=== PATIENT | male | born 1970 | race Caucasian/White ===

== ENCOUNTER 2017-03-22 07:51 | Emergency (ER) | payer OTHER ==
[~2017-03-22] VITALS: Ht 182.9 cm; Wt 107.4 kg
[2017-03-22] MEDS ORDERED: LISI-170 PO (08:14)
[2017-03-22] MEDS ORDERED: ASPIRIN 81 MG TABLET CHEW PO ONE (08:30)
[2017-03-22] MEDS ORDERED: NITROGLYCERIN SINGLE TAB 0.4 MG SL PRN (08:30)
[2017-03-22 09:02] LABS: BLOOD UREA NITROGEN 22 mg/dL (7-18)
[2017-03-22 09:06] LABS: IS PT STATUS REG ER OR PRE ER? YES
[2017-03-22] MEDS ORDERED: ASPIRIN 81 MG TABLET CHEW ONE (09:07)
[2017-03-22] MEDS ORDERED: NITROGLYCERIN SINGLE TAB 0.4 MG SL ONE (09:07)
[2017-03-22 11:49] VITALS: BP 120/68
== END 2017-03-22 12:19 | disposition home or self-care (01) ==
LOC: ED 08:50
DX: R07.89 Other chest pain (principal); I10 Essential (primary) hypertension
CPT/HCPCS: 36415; 71010; 80048; 82040; 84484; 85025; 93005; 99285

== ENCOUNTER → 2017-05-06 | Outpatient (CLI) | payer OTHER ==
[~2017-05-06] MED LIST: LISI-170 PO
== END | disposition home or self-care (01) ==
LOC: CVU 12:30
PROVIDERS: ATTEND Internal Medicine Cardiovascular Disease
DX: I77.819 Aortic ectasia, unspecified site (principal); I51.7 Cardiomegaly; I10 Essential (primary) hypertension; E78.5 Hyperlipidemia, unspecified
CPT/HCPCS: 93306

== ENCOUNTER 2017-06-10 09:51 | Day surgery (SDC) | payer OTHER ==
[~2017-06-10] VITALS: Ht 182.9 cm; Wt 95.5 kg
[2017-06-10] MEDS ORDERED: SODIUM CHLORIDE 0.9% 1,000 ML IV SCH (09:58)
[2017-06-10] MEDS ORDERED: BISACODYL 5 MG EC TABLET PO PRN (10:00)
[2017-06-10] MEDS ORDERED: ONDANSETRON 2MG/ML, 2ML IVPush PRN (10:00)
[2017-06-10] MEDS ORDERED: ACETAMINOPHEN 325 MG TABLET PO PRN (10:00)
[2017-06-10] MEDS ORDERED: BISACODYL 10 MG SUPP PR PRN (10:00)
[2017-06-10] MEDS ORDERED: ASPIRIN 325 MG TABLET EC PO ONE (10:00)
[2017-06-10 10:15] VITALS: BP 132/87
[2017-06-10] MEDS ORDERED: ASPI-621 PO (10:36)
[2017-06-10] MEDS ORDERED: METO25TA91 PO (10:36)
[2017-06-10] MEDS ORDERED: ATOR40TA78 PO (10:36)
[2017-06-10] MEDS ORDERED: LISI1TAB5 PO (10:36)
[2017-06-10] MEDS ORDERED: NITR0.4T28 SL (10:36)
[2017-06-10] MEDS ORDERED: CHOL500015 PO (10:36)
[2017-06-10] MEDS ORDERED: OMEG1CAP6 PO (10:36)
[2017-06-10] MEDS ORDERED: ASPIRIN 325 MG TABLET EC ONE (10:43)
[2017-06-10] MEDS ORDERED: MIDAZOLAM 1 MG/ML, 5ML ONE (11:25)
[2017-06-10] MEDS ORDERED: LIDOCAINE 2%, 20ML ONE (11:26)
[2017-06-10] MEDS ORDERED: FENTANYL PF 100 MCG/2ML ONE (11:26)
[2017-06-10] MEDS ORDERED: SODIUM CHLORIDE 0.9% 500 ML IV SCH (14:30)
[2017-06-10] MEDS ORDERED: ZOLPIDEM 5MG TABLET PO PRN (21:00)
== END 2017-06-10 16:11 | disposition home or self-care (01) ==
LOC: CACL 09:51
PROVIDERS: ATTEND Internal Medicine Cardiovascular Disease
DX: I25.10 Atherosclerotic heart disease of native coronary artery without angina pectoris (principal); I10 Essential (primary) hypertension; E78.2 Mixed hyperlipidemia; Z82.49 Family history of ischemic heart disease and other diseases of the circulatory system; Z86.73 Personal history of transient ischemic attack (TIA), and cerebral infarction without residual deficits; Z72.89 Other problems related to lifestyle
CPT/HCPCS: 93458; 99156; C1894; J2250; J3010; J3490; Q9967

== ENCOUNTER 2019-04-17 12:44 | Outpatient (CLI) | payer OTHER ==
[~2019-04-17 12:44] MED LIST changes: +ASPI81TA45 PO; +ATOR40TA78 PO; +CHOL500015 PO; +LISI1TAB5 PO; +METO25TA91 PO; +NITR0.4T28 SL; +OMEG1CAP6 PO
== END 2019-04-17 23:59 | disposition home or self-care (01) ==
LOC: CVU 12:44
PROVIDERS: ATTEND Internal Medicine Cardiovascular Disease
DX: I77.810 Thoracic aortic ectasia (principal); I10 Essential (primary) hypertension; E78.5 Hyperlipidemia, unspecified
CPT/HCPCS: 0399T; 93306

== ENCOUNTER → 2020-07-11 | Outpatient (CLI) | payer OTHER ==
[~2020-07-11] MED LIST changes: +LISI1TAB39 PO; -LISI1TAB5 PO
== END | disposition home or self-care (01) ==
LOC: CFH 08:29
PROVIDERS: ATTEND Internal Medicine Cardiovascular Disease
DX: I10 Essential (primary) hypertension (principal); R07.89 Other chest pain
CPT/HCPCS: 93306